=== PATIENT | male | born 1995 | race Caucasian/White ===

== ENCOUNTER 2018-03-31 21:03 | Emergency (ER) | payer BC ==
[~2018-03-31] VITALS: Ht 195.6 cm; Wt 120.5 kg
[2018-03-31 21:07] VITALS: BP 132/61; TEMP 98.2
[2018-03-31] MEDS ORDERED: NORCO 325 MG-7.1 TAB PO (23:31)
[2018-03-31 23:43] VITALS: PULSE 80
== END 2018-03-31 23:44 | disposition home or self-care (01) ==
LOC: COL.ER 21:03
DX: S39.012A Strain of muscle, fascia and tendon of lower back, initial encounter (principal); X50.0XXA Overexertion from strenuous movement or load, initial encounter
CPT/HCPCS: J1885; J2360